=== PATIENT | female | born 1995 | race Caucasian/White ===

== ENCOUNTER 2017-11-02 11:22 | Emergency (ER) | payer BC ==
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
== END 2017-11-02 13:07 | disposition home or self-care (01) ==
LOC: ER 11:22
DX: S61.412A Laceration without foreign body of left hand, initial encounter (principal); W26.0XXA Contact with knife, initial encounter
CPT/HCPCS: 12001; 99283